=== PATIENT | male | born 1960 | race Caucasian/White ===

== ENCOUNTER 2019-05-30 06:18 | Day surgery (SDC) | payer OTHER, SELFPAY ==
[2019-05-17 13:50] VITALS: BMI 32.1
[2019-05-30] VITALS (7 sets, daily range): BP systolic 112–143; BP diastolic 69–88; PULSE 69–77; RESP 12–18; TEMP 36.6–36.8; O2SAT 95–97; BMI 31.1
--- NOTE | 2019-05-30 | PATH_ITS ---
[facility] Accession Number: [id number] . 01 Material submitted: . neck - POSTERIOR NECK MASS . 02 Diagnosis: Mass, Posterior Neck: Lipoma, negative for atypia. MRV/06/03/2019 . 02 Electronically signed: . Michelet Moses MD, Pathologist NPI- [id number] . 01 Gross description: . Received in formalin, labeled with the patient's name and posterior neck mass, is a 6.1 x 4.4 x 2.4 cm elias-yellow fatty tissue with a ragged external surface. The external surface is inked black. The specimen is serially sectioned to reveal an encapsulated yellow-elias lobulated cut surface. [employer] sections are submitted in five cassettes. (ALMAZ:[id number]) /MRV . 02 Pathologist provided ICD-10: D17.0 . 02 CPT . 153159 Performed at: 01 [facility] [address] [id number] MD Maciel Zapata MD Phone: [phone] Performed at: 02 [facility] [address] [place], [place] [id number] MD Janet Liao MD Phone: [phone]
[2019-05-30] MEDS: LACTATED RINGERS 1,000 ML 100 ML IV (07:08)
--- NOTE | 2019-05-30 07:49 | PM.HP.1 ---
History of Present Illness Date Patient Seen: 05/30/19 Time Patient Seen: 07:49 Chief complaint: [id number] EXCISION RIGHT NECK MASS Narrative: The patient is a gentleman here for excision of a mass at the base of his right neck. Patient History Medical History Hx of laceration of skin (Acute ~1979) HTN (hypertension) (Chronic) Sleep apnea (Chronic) Surgical History History of colonoscopy (Acute) Hx of local excision of skin lesion (Acute ~2011) H/O vasectomy (Resolved) Hx of tonsillectomy (Resolved) Social History marital status: household members: spouse occupational status: employed Smoking Status: Former smoker alcohol intake: current substance use type: does not use Family & Social History Social History: household members spouse Tobacco & Substance use: Smoking Status Former smoker alcohol intake current Meds Home Medications Medication Instructions Recorded Confirmed Type aspirin 81 mg PO QDAY #0 08/04/17 05/30/19 History losartan 50 mg tablet 50 mg PO DAILY 04/16/19 05/30/19 History Allergies Allergy/AdvReac Type Severity Reaction Status Date / Time No Known Drug Allergies Allergy Verified 05/30/19 06:42 Review of Systems Review of Systems All systems reviewed & are unremarkable except as noted in HPI and below Cardiovascular Comments: Hypertension Exam Vital Signs (past 8 hours): - 05/30/19 06:55 Temperature 98.1 F Pulse Rate 69 Respiratory Rate 18 Blood Pressure 143/88 H Pulse Oximetry 95 Oxygen Delivery Method Room Air Narrative Exam Narrative: Cooperative gentleman in no apparent distress. A bit overweight. He has a soft tissue mass at the base of his right neck. Measures about 5 x 5 cm. Clinically a lipoma. Lungs are clear to auscultation no rales or rhonchi. Heart regular rate and rhythm without murmur gallop. Abdomen is protuberant soft. Alert and oriented x3. Assessment & Plan Assessment & Plan narrative: Patient with a mass at the base of the right neck that is become bothersome and desires removal. Clinically it is a lipoma. I have discussed the excision with him. Risks of bleeding infection recurrence discussed. He will of a scar. All questions were answered.
--- NOTE | 2019-05-30 07:52 | PM.PREOP ---
Pre-operative Note Interval Note History & Physical reviewed/Exam performed by Physician: Yes Changes to H&P: No
[2019-05-30] MEDS: CEFAZOLIN 2 GM/100 ML FROZ.PIGGY IV (08:05)
--- NOTE | 2019-05-30 08:20 | SUR.OPER ---
Lateral on padded OR bed, head on pillow, gel axillary roll in place, bottom leg bent with gel pad under knee to foot, upper leg straight and supported with pillows. Upper arm supported by pillows and secured over bottom arm to padded arm board. Safety belt at hip, tape over blanket lower legs.
[2019-05-30] MEDS: BUPIVACAINE 0.5% W/ EPI (PF) VIAL 30 ML INJ (08:26)
[2019-05-30] MEDS: OXYCODONE/ACETAMINOPHEN 5/325 TABLET 1 TAB PO (09:11)
--- NOTE | 2019-05-30 09:16 | PM.OP.1 ---
Operative Date/Time/Diagnoses Date of procedure: 05/30/19 Time of procedure: 09:16 Pre-op diagnosis: Mass base of right neck posterior probable lipoma Post-op diagnosis: same (5 x 4 cm. Inter muscular component) Procedure & Clinicians Procedure: Excision of lipoma Same procedure as scheduled: Yes Indications: Symptomatic mass which is clinically a lipoma. Click Yes if Unassisted: Yes Anesthesia Type: General Operative Notes Findings: Subcutaneous and inter muscular fatty mass Closure Type: primary Specimen(s): other (Mass) Prosthetic devices, grafts, tissues, transplants, or devices: None Estimated Blood Loss (mL): 5 Blood products transfused: none Procedure in detail: The patient was placed in left lateral decubitus position on a padded beanbag once he underwent general LMA anesthesia. He was prepped and draped in the usual fashion. Local anesthetic was infiltrated over the mass which was marked preoperatively. Transverse incision was made and carried down to the level the mass. It was under the subcu fat. It was densely adherent to surrounding structures including muscle. Portion of the dive between muscle. It had to be sharply dissected off muscle fascia. A portion of the fascia remained attached due to the density of the adhesion. Ultimately it appeared to be completely removed. Hemostasis was achieved with cautery. There had been very little bleeding. The muscle fascia was reapproximated with interrupted 3 0 Vicryl. The subcu was closed with interrupted 3 0 Vicryl and the skin was closed with a running 4 0 Vicryl subcuticular stitch and Steri-Strips. Patient was placed flat extubated taken recovery room good condition Complications: none Condition: stable Disposition: PACU Plan for aftercare: Follow-up in the office
--- NOTE | 2019-05-30 09:41 | SUR.PHASEII ---
Assumed care from Eileen, dressing to back right of neck C/D/I. ice to area. Dr. Kwong to bedside, gave pt a note for work. took prescription to pharmacy to get filled.
--- NOTE | 2019-05-30 10:05 | SUR.PHASEII ---
pt ready to go, returned with medication. pt dressed with assist of . left unit in stable condition.
== END 2019-05-30 10:11 | disposition home or self-care (01) ==
PROVIDERS: PCP Nurse Practitioner Family; Visit Provider Specialist
PROC: (CPT 21554; principal; 2019-05-30 07:45)
DX: D17.0 Benign lipomatous neoplasm of skin and subcutaneous tissue of head, face and neck (principal); I10 Essential (primary) hypertension; G47.30 Sleep apnea, unspecified; Z87.891 Personal history of nicotine dependence
CPT/HCPCS: 21554; 88304; J0690; J1100; J1885; J2250; J2405; J2704; J3010